=== PATIENT | female | born 1995 | race Caucasian/White ===

== ENCOUNTER 2025-03-28 07:58 | Emergency (ER) | payer MEDICAID, SELFPAY ==
[2025-03-28] VITALS (11 sets, daily range): BP systolic 130–147; BP diastolic 89–99; PULSE 68–88; RESP 16–20; TEMP 36.2; O2SAT 97–100; BMI 24.9
--- NOTE | 2025-03-28 08:04 | ED.GENADULT ---
HPI - General Adult General Date Seen: 03/28/25 Chief complaint: Nausea/Vomiting Stated complaint: vomiting Time Seen by Provider: 03/28/25 08:04 History of Present Illness HPI narrative: 30-year-old female presenting to the ER today with nausea, vomiting, abdominal pain, diarrhea. She needs reports that she has had about 2 weeks of repetitive vomiting (mostly clear, not much blood) with diffuse abdominal pain, and some loose stools. Additional history, obtained from the patient after triage, is that she actually has had trouble with abdominal pain and vomiting for more than a year or 2. It sounds like she has had some workup through her doctors at the [facility] in [place] last year. She was found to have gallstones and actually had a cholecystectomy last year. However symptoms did not get better after that. She also has a history marijuana use. Her doctor had her stop marijuana for a couple of months last year but her symptoms did get better. She says that her doctor apparently told her that she might have gastritis. Not sure if she has ever had an endoscopy to confirm that diagnosis. Per medical record through [facility] she did have an endoscopy done in January 2023. Results are not few oval in the medical record. I do not see any clear doctors follow-up note discussing the results of the EGD, save for an ER note in February 25 says endoscopy revealed gastritis. She had a gallbladder ultrasound in 2022 that showed either a stone or polyp. She ended up undergoing cholecystectomy. It sounds like that did not resolve her symptoms. She did have counseling from her doctor to stop using marijuana and she did stop for a couple of months but did not get better. She has been experiencing pain and nausea with vomiting almost every morning for the past Year so. A couple of months ago she got a [id number] medication (probably esomeprazole) in started taking that to see if that help her symptoms get better. A couple of weeks ago her mother read the package and the package directions said the usual intake as omeprazole for 2 weeks. The patient was alarmed that she had been on it too long so she stopped taking that medication a couple of weeks ago. Since then symptoms have been much worse with more severe vomiting and pain. She has gotten to the point now where she can not stop vomiting. She has not been able to take her other medications ( control). She came to the ER today cut she is just feeling miserable. Per the [facility] medical record her last visit with her primary care provider, Dr. Leonid Fleming through [facility] was in October this year. According to that note she was on Lexapro for anxiety. Patient reports that she had broken up with her boyfriend about 5 months ago and had not been sexually active since then. She had her last period in late December or early January and was very spotty. She does recall that she was sexually active with a different person sometime in early January. She is not aware that she was but also notes that she had not been able to take her whole pills because of her nausea and vomiting. She was not aware she was until we did obtain a positive test here in the ER. Best estimate of LMP would have been late December or early January which would make her approximately 12 weeks gestation. Related Data Home Medications ?Medication ?Instructions ?Recorded ?Confirmed famotidine PO 03/28/25 Previous Rx's ?Medication ?Instructions ?Recorded omeprazole 40 mg capsule,delayed 40 mg PO DAILY #30 caps 03/28/25 release ondansetron HCl 4 mg tablet 4 mg PO Q8H PRN nausea and 03/28/25 vomiting 4 days #10 tabs Allergies Allergy/AdvReac Type Severity Reaction Status Date / Time No Known Drug Allergies Allergy Verified 03/28/25 08:04 [facility] Social History Smoking Status: Current every day smoker Non-prescribed substance use: marijuana (any form) Exam Narrative: Exam Narrative: During initial encounter the patient is actively retching (clear mucousy emesis), Recheck-after Zofran feeling quite a bit better. I am able to get a more detailed history and physical (see HPI) and do initial physical exam. She does have diffuse mild tenderness. Constitutional: Appears well-developed and well-nourished. Alert. Conversant. Uncomfortable and nausea HENT: Head: Atraumatic. Nose: Nose normal. Mouth/Throat: Oral mucosa is clear and moist. no trismus. Pharynx normal. Mucous membranes are not desiccated or cracked. Eyes: Conjunctivae normal. EOM normal. Pupils equal, round, and reactive to light. No scleral icterus. Neck: Normal range of motion. Neck supple. No tracheal deviation present. Cardiovascular: Normal rate, regular rhythm. No gallop. No friction rub. No murmur heard. Symmetric radial artery pulses Pulmonary/Chest: Effort normal. No stridor. No respiratory distress. No wheezes. No rales. No rhonchi . No tenderness. Abdominal: Soft. Bowel sounds normal. No distension. No mass. Mild diffuse tenderness, max in the epigastrium. No rebound. No guarding. Musculoskeletal: RUE: Normal range of motion. No tenderness. No deformity LUE: Normal range of motion. No tenderness. No deformity RLE: Normal range of motion. No edema. No tenderness. No deformity LLE: Normal range of motion. No edema. No tenderness. No deformity Neurological: Alert and oriented to person, place, and time. Normal strength. CN II-VII intact. No sensory deficit. GCS eye subscore is 4. GCS verbal subscore is 5. GCS motor subscore is 6. Normal coordination Skin: Skin is warm and dry. No rash noted. No pallor. Normal capillary refill. Psychiatric: Normal mood. Normal affect. Const: Vital Signs, click to edit/add: Vital Signs - 24 hr 03/28/25 08:01 03/28/25 08:45 03/28/25 08:47 Temperature 97.1 F L Pulse Rate Pulse Rate [Pulse Oximeter] 88 Respiratory Rate 20 Blood Pressure [Ri ght Upper Arm] 147/99 H Pulse Oximetry 97 100 100 Oxygen Delivery Me thod Room Air 03/28/25 08:50 03/28/25 09:00 03/28/25 09:10 Temperature Pulse Rate Pulse Rate [Pulse Oximeter] Respiratory Rate Blood Pressure [Ri ght Upper Arm] Pulse Oximetry 100 99 100 Oxygen Delivery Me thod 03/28/25 09:15 03/28/25 09:20 03/28/25 09:52 Temperature Pulse Rate 68 Pulse Rate [Pulse Oximeter] Respiratory Rate Blood Pressure [Ri ght Upper Arm] Pulse Oximetry 100 100 100 Oxygen Delivery Me thod 03/28/25 09:53 03/28/25 09:58 Temperature Pulse Rate Pulse Rate [Pulse Oximeter] Respiratory Rate 16 Blood Pressure [Ri ght Upper Arm] 130/89 Pulse Oximetry 99 Oxygen Delivery Me thod Course Course ED Course: Recheck-somewhat improved after Zofran. Would like some more nausea medication-droperidol ordered Reevaluation(s) Reevaluation #1: Recheck-patient not able ride urine. I called the lab to have them had a serum qualitative test. test came back positive. Discussed with the patient. She notes irregular spotting for the past couple months and is unsure of her LMP. She think she was sexually active in early January or early December. Best gestational age would be approximately 12-15 weeks based on patient report. Will obtain quant and ultrasound given test would hold off on CT scan. Patient is endorsing that she does not want to keep the baby. Nonetheless, risk of radiation exposure would outweigh the benefit at this point especially given chronicity of symptoms and normal white count. Low likelihood for appendicitis based on history and no clear evidence for bowel obstruction based on my clinical exam given absence distension or tympanic findings. Recheck-preliminary report from land survey technician is that there is a single live IUP at 8 weeks and 4 days. Heart rate is in the 170s. No other abnormality. Awaiting formal radiology interpretation. Vital Signs Vital signs: Initial Vital Signs Temperature 97.1 F L 03/28/25 08:01 Temperature Source Temporal Artery Scan 03/28/25 08:01 Pulse Rate 88 03/28/25 08:01 Respiratory Rate 20 03/28/25 08:01 Blood Pressure 147/99 H 03/28/25 08:01 Blood Pressure Mean 115 H 03/28/25 08:01 Blood Pressure Position Sitting 03/28/25 08:01 Pulse Oximetry 97 03/28/25 08:01 Oxygen Delivery Method Room Air 03/28/25 08:01 Vital Signs Temperature 97.1 F L 03/28/25 08:01 Pulse Rate 88 03/28/25 08:01 Respiratory Rate 20 03/28/25 08:01 Blood Pressure 147/99 H 03/28/25 08:01 Pulse Oximetry 97 03/28/25 08:01 Oxygen Delivery Method Room Air 03/28/25 08:01 Temperature 97.1 F L 03/28/25 08:01 Pulse Rate 68 03/28/25 09:15 Respiratory Rate 16 03/28/25 09:58 Blood Pressure 130/89 03/28/25 09:58 Pulse Oximetry 99 03/28/25 09:53 Oxygen Delivery Method Room Air 03/28/25 08:01 Medications Administered Medications: Generic Name Dose Route Start Last Admin Trade Name Freq PRN Reason Stop Dose Admin Hydromorphone HCl 0.5 mg 03/28/25 08:19 03/28/25 08:33 Hydromorphone 0.5 Mg/0.5 Ml Inj IVP 0.5 mg Q1H PRN Administration Pain Discontinued Medications Generic Name Dose Route Start Last Admin Trade Name Freq PRN Reason Stop Dose Admin Droperidol 2.5 mg 03/28/25 09:30 03/28/25 09:53 Droperidol 2.5 Mg/Ml Inj IV 03/28/25 09:31 2.5 mg ONCE ONE Administration Sodium Chloride 1,000 mls @ 1,000 mls/hr 03/28/25 08:30 03/28/25 09:47 0.9 % Sodium Chloride 1000 Ml IV 03/28/25 09:29 Infused .Q1H JULIO Infusion Ondansetron HCl 4 mg 03/28/25 08:19 03/28/25 08:33 Ondansetron 2 Mg/Ml Inj IVP 03/28/25 08:20 4 mg ONCE ONE Administration Medical Decision Making [facility] Narrative Medical decision making narrative: 30-year-old female presenting to the ER today with generalized abdominal pain, repetitive nausea and vomiting, as well as diarrhea. Presentation is highly complex. She initially reported a couple weeks of symptoms but it turns out she has actually been having chronic abdominal pain and vomiting for the past couple of years and has had workup through the [facility] that included EGD in 2022 that showed gastritis as well as gallstones leading to cholecystectomy in 2022. Despite that she has ongoing symptoms. She also is a regular marijuana user. She had apparently taken a 2 month hiatus from marijuana last year the year before without improvement her symptoms so is using regularly these days. The differential diagnosis of abdominal pain includes: Appendicitis, Bowel Obstruction, Ulcer, Ischemia, retained common bile duct stone, Diverticulitis, Pancreatitis, UTI, kidney stone, Enteritis/Colitis, amongst many other etiologies. Laboratory testing does not reveal a cause for the patient's pain. White count normal. Liver function tests and lipase normal. Urinalysis is negative for signs of infection. Urine test is positive. This was surprising to the patient. Based on the patient's best estimate she would be somewhere between 12 and 15 weeks . We did obtain a quantitative hCG which is 66,000 and a pelvic ultrasound which shows pelvic ultrasound confirms a viable intrauterine . Single 10. Normal heart tones. No evidence for ectopic, or adnexal masses. No evidence for subchorionic hemorrhage. The exact etiology of the symptoms is not clear at this time. Suspect possibly chronic gastritis, now superimposed nausea and vomiting from 1st trimester . No life threatening cause or need for emergent surgery or hospital admission is detected today. The patient will require ongoing treatment and workup. Will start the patient on Zofran for nausea. Would encourage her to continue on a PPI. Will send a prescription for omeprazole. I think she needs close outpatient follow-up with primary care and consideration for endoscopy to look for gastritis or peptic ulcer disease. At this point no evidence for any acute surgical emergency such as perforated ulcer or upper GI bleed. Also counseled to abstain from marijuana because that still could be contributing to her chronic symptoms.. The patient also understands that if they worsen, they should return to the ER right away. I discussed the uncertainty about the diagnosis and answered the patient's questions. Abdominal pain return precautions discussed. Lab Data Labs: Lab Results 03/28/25 03/28/25 03/28/25 Range/Units 08:41 09:54 Unknown WBC 10.66 (4.50-11.00) K/uL RBC 4.46 (4.00-5.20) m/uL Hgb 13.0 (12.0-16.0) gm/dL Hct 37.9 (33.0-51.0) % MCV 85 (80-100) fL MCH 29 (26-34) pg MCHC 34 (32-36) gm/dL RDW Coeff of Brian 12.1 (11.5-15.5) % Plt Count 209 (140-440) K/uL Neut % (Auto) 77.0 H (42.0-72.0) % Lymph % (Auto) 17.4 L (20-44) % [place] % (Auto) 5.0 (0.0-11.0) % Eos % (Auto) 0.2 (0.0-7.0) % Baso % (Auto) 0.2 (0.0-3.0) % Neut # (Auto) 8.20 H (1.7-7.0) K/uL Lymph # (Auto) 1.90 (0.90-2.90) K/uL [place] # (Auto) 0.50 (0.00-0.90) K/UL Eos # (Auto) 0.02 (0.00-0.50) K/uL Baso # (Auto) 0.02 (0.00-0.30) K/uL Abs Immat Gran (auto) 0.02 (0.00-0.30) K/uL Imm/Tot Granulo (auto) 0.2 % Sodium 137 (135-149) mmol/L Potassium 3.8 (3.6-5.1) mmol/L Chloride 104 (96-114) mmol/L Carbon Dioxide 22 (20-32) mmol/L Anion Gap 11 (7-15) mEq/L BUN 10 (5-24) mg/dL Creatinine 0.6 (0.5-1.5) mg/dL Estimated Creat Clear 118.39 Estimated GFR 124 ml/min Glucose 128 H (60-115) mg/dL Calcium 9.7 (8.4-10.6) mg/dL Total Bilirubin 0.6 (0.1-1.5) mg/dL AST 27 (12-35) U/L ALT 14 (4-35) U/L Alkaline Phosphatase 59 (40-150) U/L Total Protein 7.9 (6.0-8.3) g/dL Albumin 4.7 (3.3-5.0) g/dL Lipase 46 (23-300) U/L HCG, Qual Positive (Negative) HCG, Quant 86810.00 mIU/mL Urine Color Yellow (Yellow) Urine Appearance Clear (Clear) Urine pH 8.0 (5.0-8.5) Ur Specific [place] 1.020 (1.000-1.030) Urine Protein Negative (Negative) Urine Glucose (UA) Negative (Negative) Urine Ketones 1+ A (Negative) Urine Blood Negative (Negative) Urine Nitrite Negative (Negative) Urine Bilirubin Negative (Negative) Urine Urobilinogen 0.2 (0.2-1.0) Ur Leukocyte Esterase Negative (Negative) Urine RBC 0-2 (0-2) Urine WBC 0-2 (0-5) Ur Squamous Epith Cells None (None-Few) Amorphous Sediment Moderate A (None) Urine Bacteria None (None) Ethyl Alcohol < 0.01 (0.01-0.03) % Blood Type A Positive Antibody Screen NEGATIVE Imaging Data US pelvic: Attestation: I have reviewed the pertinent imaging results. Radiologist's impression: FINDINGS: CRL: 2.0 cm, 8 weeks 4 days; ELEONORA 11/03/2025 heart rate: 159 BPM Gestational sac: 2.5 cm, appears within normal limits Yolk sac: 3.5 mm, appears within normal limits Right ovary: Within normal limits; 2.8 x 1.7 x 2.4 cm Left ovary: Within normal limits; 2.3 x 1.6 x 1.9 cm IMPRESSION: 1.Intrauterine . 2.There is a normal appearance of the pole and a yolk sac. 3.Measurements and dates are given above. 4.No additional sonographic abnormality. The adnexal regions are unremarkable. Discharge Plan Discharge Clinical Impression: Vomiting, Abdominal pain, Patient Disposition: Home, Self-Care Condition: Stable Instructions: (ED), Abdominal Pain (ED) Additional Instructions: As we discussed, it is very important for you to follow-up with your regular doctor for a checkup within the next 1-3 days. In the meantime, please avoid exposure to marijuana. Use Zofran if needed for nausea. Use Tylenol if needed for pain. Come back to the ER if you have worsening or uncontrolled symptoms, vomiting blood, bloody stools, high fever, or if you any other concerns. Please follow-up with your doctor about your problems. You may need an endoscopy to look for stomach ulcers or acid suero on the inner lining of your stomach (called ?gastritis?). Additionally you may need referral to a GI team for a more advanced workup for your ongoing symptoms Prescriptions: New omeprazole 40 mg capsule,delayed release(DR/EC) 40 mg PO DAILY Qty: 30 2RF ondansetron HCl 4 mg tablet 4 mg PO Q8H PRN (Reason: nausea and vomiting) 4 Days Qty: 10 0RF No Action famotidine PO Follow Up/Referrals: Provider,Not a Local [Primary Care Provider, Family Practice] Stand Alone Forms: [employer] Info Instructions
[2025-03-28] MEDS: ONDANSETRON 2 MG/ML inj 4 MG IVP (08:33)
[2025-03-28 08:52] LABS: Hematocrit* 37.9 % (33.0-51.0); Hemoglobin* 13.0 gm/dL (12.0-16.0); Immature Granulocytes Abs Auto 0.02 K/uL (0.00-0.30); Immature Granulocytes Pct Auto 0.2 %; Mean Corpuscular HGB Conc 34 gm/dL (32-36); Mean Corpuscular Hemoglobin 29 pg (26-34); Mean Corpuscular Volume 85 fL (80-100); RDW Coefficient of Variation % 12.1 % (11.5-15.5); Red Blood Count* 4.46 m/uL (4.00-5.20); White Blood Count* 10.66 K/uL (4.50-11.00)
[2025-03-28 08:54] LABS: Lymphocytes Absolute Auto 1.90 K/uL (0.90-2.90); Slide Review Reflex No
[2025-03-28 08:59] LABS: Chloride* 104 mmol/L (96-114)
[2025-03-28 09:00] LABS: Albumin* 4.7 g/dL (3.3-5.0); Potassium* 3.8 mmol/L (3.6-5.1); Sodium* 137 mmol/L (135-149)
[2025-03-28 09:03] LABS: Alanine Aminotransferase* 14 U/L (4-35); Alkaline Phosphatase* 59 U/L (40-150); Anion Gap 11 mEq/L (7-15); Aspartate Amino Transferase* 27 U/L (12-35); Bilirubin Total* 0.6 mg/dL (0.1-1.5); Blood Urea Nitrogen* 10 mg/dL (5-24); Calcium* 9.7 mg/dL (8.4-10.6); Carbon Dioxide* 22 mmol/L (20-32); Creatinine* 0.6 mg/dL (0.5-1.5); Est. Creatinine Clearance* 118.39; Estimated Glomerular Filt Rate 124 ml/min; Glucose* 128 mg/dL (60-115); Total Protein* 7.9 g/dL (6.0-8.3)
[2025-03-28 09:04] LABS: Ethanol* < 0.01 % (0.01-0.03)
[2025-03-28 09:42] LABS: HCG Qualitative Serum* Positive (Negative)
--- NOTE | 2025-03-28 09:47 | CRLHL7_ITS ---
For Patients: As a result of the Cures Act, medical imaging exams and procedure reports are released immediately into your electronic medical record. You may view this report before your referring provider. If you have questions, please contact your health care provider. OBSTETRICAL ULTRASOUND TRANSABDOMINAL, 03/28/2025 CLINICAL INDICATION: Early . Positive test. Abdominal pain and vomiting. LMP: Some time in December per patient. PREVIOUS ULTRASOUND: No TECHNIQUE: Transabdominal obstetrical ultrasound was performed. FINDINGS: CRL: 2.0 cm, 8 weeks 4 days; ELEONORA 11/03/2025 heart rate: 159 BPM Gestational sac: 2.5 cm, appears within normal limits Yolk sac: 3.5 mm, appears within normal limits Right ovary: Within normal limits; 2.8 x 1.7 x 2.4 cm Left ovary: Within normal limits; 2.3 x 1.6 x 1.9 cm IMPRESSION: 1. Intrauterine . 2. There is a normal appearance of the pole and a yolk sac. 3. Measurements and dates are given above. 4. No additional sonographic abnormality. The adnexal regions are unremarkable. JESUS SILVEIRA MD, FACR Pediatric/Diagnostic Radiologist [email or web address] Transcribed: 11:[address]/Dictated by: Jesus Silveira MD @ 03/28/2025 11:18:00 AM (Electronically Signed)
[2025-03-28 09:51] LABS: Appearance Urine Clear (Clear)
[2025-03-28 11:12] LABS: HCG Quantitative* 66415.00 mIU/mL
== END 2025-03-28 13:20 | disposition home or self-care (01) ==
PROVIDERS: Emergency Provider Emergency Medicine
DX: R10.9 Unspecified abdominal pain (principal); Z32.01 Encounter for pregnancy test, result positive
CPT/HCPCS: 36415; 76801; 80053; 81001; 81025; 82077; 83690; 84702; 84703; 85025; 86850; 86900; 86901; 94761; 96374; 96375; 99283; 99284; J1171; J1790; J2405; J7030